=== PATIENT | male | born 1955 | race Two or more races ===

== ENCOUNTER 2019-12-30 11:24 | Outpatient (CLI) | payer OTHER ==
[~2019-12-30] VITALS: Ht 175.3 cm; Wt 81.6 kg
== END 2019-12-30 16:28 | disposition home or self-care (01) ==
LOC: OFIC 805 11:24
DX: H93.11 Tinnitus, right ear (principal); H90.41 Sensorineural hearing loss, unilateral, right ear, with unrestricted hearing on the contralateral side